=== PATIENT | male | born 1990 | race Caucasian/White ===

== ENCOUNTER → 2021-06-14 | Outpatient (CLI) | payer BC ==
--- NOTE | 2021-06-14 11:05 | US ---
EXAMINATION TYPE: US venous doppler duplex LE BI: LOWER EXTREMITY VENOUS INSUFFICIENCY DATE OF EXAM: 06/14/2021 10:02 AM CLINICAL HISTORY: L97.523 NON PRESSURE CHRONIC ULCER. Left medial ankle ulcer x 1.5 months; works 10 to 12 hours daily on concrete floor; multiple varicose veins with left lower leg greater amount than right lower leg SIDE PERFORMED: bilateral 1) Color flow is present and patency is documented in the following vessels. No DVT or SVT is noted . Common Femoral Vein (CFV) Deep Femoral Vein (DFV) Femoral Vein (FV) Popliteal Vein Proximal Calf Veins Greater Saphenous Vein (GSV) 2) There is venous reflux noted at the following venous levels: in Deep System at Right CFV, upper FV; Left FV upper and Popliteal Vein. Venous reflux noted in Superficial Venous system at Bilateral G SV upper and distal GSV. Tortuous left ankle saphenous veins are seen. 3) Incompetent perforators are noted at these levels: none seen especially none seen at left media l ankle at site of ulcer. IMPRESSION: 1. Venous reflux as discussed above.
[2021-06-14 11:45] LABS: Basophils # (A) 0.1 k/uL (0-0.2); Basophils % (A) 1 %; Eosinophils # (A) 0.1 k/uL (0-0.7); Eosinophils % (A) 2 %; HCT 44.2 % (39.0-53.0); HGB 15.2 gm/dL (13.0-17.5); Lymphocytes # (A) 1.9 k/uL (1.0-4.8); Lymphocytes % (A) 23 %; MCH 32.2 pg (25.0-35.0); MCHC 34.3 g/dL (31.0-37.0); MCV 94.1 fL (80.0-100.0); Mean Platelet Volume 8.3; Monocytes # (A) 0.6 k/uL (0-1.0); Monocytes % (A) 7 %; Neutrophils # (A) 5.5 k/uL (1.3-7.7); Neutrophils % (A) 66 %; Platelet Count 245 k/uL (150-450); RDW 12.7 % (11.5-15.5); WBC 8.3 k/uL (3.8-10.6)
[2021-06-14 11:52] LABS: ALT 28 U/L (4-49); AST 35 U/L (17-59); African American GFR (CKD) >90 (>60 ml/min/1.73 sqM); Albumin 4.5 g/dL (3.5-5.0); Alkaline Phosphatase 99 U/L (38-126); Anion Gap 6 mmol/L; Blood Urea Nitrogen 15 mg/dL (9-20); Calcium 9.6 mg/dL (8.4-10.2); Carbon Dioxide 25 mmol/L (22-30); Chloride 106 mmol/L (98-107); Glucose 82 mg/dL (74-99); Non-African American GFR(CKD) >90 (>60 ml/min/1.73 sqM); Potassium 4.1 mmol/L (3.5-5.1); Sodium 137 mmol/L (137-145); Total Bilirubin 0.6 mg/dL (0.2-1.3); Total Protein 6.9 g/dL (6.3-8.2)
[2021-06-14 14:47] LABS: Erythrocyte Sedimentation Rate 5 mm/hr (0-15)
--- NOTE | 2021-06-15 11:41 | P.ARTDOP ---
Arterial Doppler LOWER EXTREMITY ARTERIAL DOPPLER: DATE OF SERVICE: 06/14/2021 Reason for study: Left ankle ulcer Doppler waveforms: Are multiphasic bilaterally throughout, With good digital waveforms. Pulse volume recording: []. Pressure gradients: None. Ankle-brachial indices: Greater than 1 bilaterally. Toe brachial indices: 0.85 on the right, 0.79 on the left Impression: Normal study.
== END | disposition home or self-care (01) ==
LOC: RADUSWWP 09:03
PROVIDERS: ATTEND Family Medicine
DX: I87.2 Venous insufficiency (chronic) (peripheral) (principal); L97.909 Non-pressure chronic ulcer of unspecified part of unspecified lower leg with unspecified severity
CPT/HCPCS: 36415; 80053; 84134; 85025; 85652; 93922; 93970